=== PATIENT | male | born 1990 | race Caucasian/White ===

== ENCOUNTER 2024-08-05 08:10 | Outpatient (CLI) | payer OTHER, SELFPAY ==
--- OUTSIDE RECORDS SUMMARY | 2024-08-08 18:56 | XMS_ITS | Clinical Summary ---
Author Organization [facility] Address [address] [place] [id number] Care Team Providers Care Coffee Sampler Name Role Phone No Ref-Primary, Physician Primary Care Provider Allergies No known active allergies Medications No known medications Encounters Date Type Department Care Team Description 05/11/2024 12:48 PM CDT - 05/11/2024 1:52 PM CDT Emergency [facility] Emergency Dept [address] [place] [phone] Denise Olivas, PAErikaC Dog bite of right hand, initial encounter Discharge Disposition: Home or Self Care 05/11/2024 Travel from Last 3 Months Immunizations Name Administration Dates Next Due TDAP (Adacel,Boostrix) 05/11/2024 Social History Tobacco Use Types Packs/Day Years Used Date Smoking Tobacco: Never Assessed Adolescent Education Answer Date Record ed Getting School Help Needed Not on file 05/11 Sex and Gender Information Value Date Recorded Sex Assigned at Not on file Gender Identity Not on file Sexual Orientation Not on file Last Filed Vital Signs Vital Sign Reading Time Taken Comments Blood Pressure 161/106 05/11/2024 12:51 PM CDT Pulse 75 05/11/2024 12:51 PM CDT Temperature 36.7 ??C (98 ??F) 05/11/2024 12:51 PM CDT Respiratory Rate 19 05/11/2024 12:51 PM CDT Oxygen Saturation 97% 05/11/2024 12:51 PM CDT Inhaled Oxygen Concentration - - Weight 106.6 kg (235 lb) 05/11/2024 12:51 PM CDT Height 175.3 cm (5' 9) 05/11/2024 12:51 PM CDT Body Mass Index 34.7 05/11/2024 12:51 PM CDT Plan of Treatment Health Maintenance Due Date Last Done Comments ADVANCE CARE PLANNING 1992 ANNUAL REVIEW OF HM ORDERS 1992 YEARLY PREVENTIVE VISIT 1992 HIV SCREENING 02/16/2007 HEPATITIS C SCREENING 02/16/2010 HEPATITIS B IMMUNIZATION (1 of 3 - 19+ 3-dose series) 02/16/2011 PHQ-2 (once per calendar year) 2023 COVID-19 Vaccine (1 - 2023-2 5 season) 2024 INFLUENZA VACCINE (#1) 2024 DTAP/TDAP/TD IMMUNIZATION (2 - Td or Tdap) 05/11/2034 05/11/2024 HPV IMMUNIZATION Aged Out No longer e ligible based on patient's age to complete this topic MENINGITIS IMMUNIZATION Aged Out No l onger eligible based on patient's age to complete this topic Pneumococcal Vaccine: Pediat rics (0 to 5 Years) and At-Risk Patients (6 to 64 Years) Aged Out No longer eligi ble based on patient's age to complete this topic RSV MONOCLONAL ANTIBODY Aged Out No l onger eligible based on patient's age to complete this topic Care Teams Coffee Sampler Relationship Specialty Start Date End Date No Ref-Primary, Physician PCP - General 05/11/24
--- OUTSIDE RECORDS SUMMARY | 2024-08-08 18:56 | XMS_ITS | Referral Summary ---
Author Organization [facility] Address [address] [place] [address] Care Team Providers Care Bench Machine Operator Name Role Phone No Ref-Primary, Physician Primary Care Provider Encounters Date Type Department Care Team Description 05/11/2024 Travel 05/11/2024 12:48 PM CDT - 05/11/2024 1:52 PM CDT Emergency [facility] Emergency Dept [address] [place] [phone] Denise Olivas, KAILASHC Dog bite of right hand, initial encounter Discharge Disposition: Home or Self Care from Last 3 Months Allergies No known active allergies Medications No known medications Immunizations Name Administration Dates Next Due TDAP [...] 05/11/2024 12:51 PM CDT Plan of Treatment Not on file Care Teams Bench Machine Operator Relationship Specialty Start Date End Date No Ref-Primary, Physician PCP - General 05/11/24
--- OUTSIDE RECORDS SUMMARY | 2024-08-08 18:56 | XMS_ITS | Encounter Summary ---
Author Organization [facility] Address [address] [place] [id number] Care Team Providers Care Tray Drier Operator Name Role Phone No Ref-Primary, Physician Primary Care Provider Reason for Visit * Reason Comments Dog Bite Encounter Details Date Type Department Care Team (Late st Contact Info) Description 05/11/2024 12:48 PM CDT - 05/11/2024 1:52 PM CDT Emergency [facility] Emergency Dept [address] [place] [address] Denise Olivas, PA-C [facility] [address] [place] [id number] Dog bite of right hand, initial encounter Discharge Disposition: Home or Self Care Social History Tobacco Use Types Packs/Day Years Used Date Smoking Tobacco: Never Assessed Adolescent Education Answer Date Record ed Getting School Help Needed Not on file 05/11 Sex and Gender Information Value Date Recorded Sex Assigned at Not on file Gender Identity Not on file Sexual Orientation Not on file documented as of this encounter Last Filed Vital Signs Vital Sign Reading [...] Mass Index 34.7 05/11/2024 12:51 PM CDT documented in this encounter Discharge Instructions * Discharge Instructions* Denise Olivas PA-C - 05/11/2024 1:05 PM CDT Continue to clean wound daily, washing with soap and water daily and apply new bandage with bacitracin or Neosporin ointment. Continue antibiotics as prescribed for the next 5 days. If you find out that dog was not up-to-date on vaccines or wish to pursue rabies vaccination series, please return toER. * Attachments The following attachments cannot be sent through Care Everywhere. 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 Unknown rabies vaccine. * Denise Olivas PA-C - 05/11/2024 12:35 PM CDT Emergency Department Note History of Present Illness Chief Complaint Dog Bite HPI Truong Lucas is a 34 year old male who presents with dog bite. Patient reports that he was near her house that had numerous dogs and fenced yard. Fence was knocked over accidentally by one of the dogs and one of the small terriers came and bit patient on the right hand. Uncertain of rabies vaccination status as he called the family's glass cleaning machine tender who denies any history for the pets listed. Family is adamant that pets are up-to-date on vaccines however. Discussed rabies vaccination with patient and he declined these today. Independent Historian None Review of External Notes Reviewed [facility] - last tdap 2011 Past Medical History Medical History and Problem List No past medical history on file. Medications amoxicillin-clavulanate (AUGMENTIN) 875-125 MG tablet Surgical History No past surgical history on file. Physical Exam Patient Vitals for the past 24 hrs: BP Temp Temp src Pulse Resp SpO2 Height Weight 05/11/24 1251 (!) 161/106 98 ??F (36.7 ??C) Oral 75 19 97 % 1.753 m (5' 9) 106.6 kg (235 lb) 05/11/24 1247 (!) 159/119 99.1 ??F (37.3 ??C) Oral 71 18 97 % -- -- 05/11/24 1246 -- -- -- -- 18 -- -- -- Physical Exam General: Alert and cooperative with exam. Patient in no apparent distress. Normal mentation. Head: Scalp is NC/AT Eyes: EOM intact ENT: The external nose and ears are normal. Neck: Normal range of motion without rigidity. CV: Warm and well perfused Resp: Breathing comfortably on room air MSK: Full range of motion of all digits of right hand without difficulty or pain. No evidence of tendon injury. Skin: Small superficial abrasion and small puncture wound noted to dorsal aspect of MCP joint of right second digit. Bleeding controlled. Neuro: Oriented x 3. No gross motor deficits. Diagnostics None ED Course Medications Administered Medications amoxicillin-clavulanate (AUGMENTIN) 875-125 MG per tablet 1 tablet (has no administration in time range) Tdap (mjtuizn-qylsgxuptz-ftprh pertussis) (ADACEL) injection 0.5 mL (0.5 mLs Intramuscular $Given 05/11/24 1310) Procedures Procedures Discussion of Management None ED Course Optional/Additional Documentation None Medical Decision Making / Diagnosis [facility] Diagnoses: None MIPS None MDM Truong Lucas is a 34 year old male who presents with dog bite to right index finger over dorsal aspect at MCP joint. See HPI for further details. Patient is uncertain if dog that bit him is up-to-date on vaccines but is actively working to find this out. Discussed initiation of rabies vaccinationseries here and as patient has low suspicion for rabies infection and is still continuing to work to find out if vaccination is up-to-date, he wishes to decline series today and states he will returnto ER if he finds out that dog was not up-to-date on vaccines or if he wishes to pursue rabies vaccination in the next few days. Superficial abrasion along with small puncture wound noted to the dorsal aspect of right MCP joint. Full range of motion of the digits of right hand without difficulty orpain. Wound was thoroughly cleansed and dressed. Tetanus was not up-to-date, this was updated today. Started patient on Augmentin, initial dose provided here with Rx sent to pharmacy. Discussed woundcares and reasons to follow-up with primary. If symptoms of laceration and bite worsen he develops s igns or symptoms of infection or worsening pain, return to ER. Disposition The patient was discharged. Diagnosis ICD-10-CM 1. Dog bite of right hand, initial encounter S61.451A W54.0XXA Discharge Medications New Prescriptions AMOXICILLIN-CLAVULANATE (AUGMENTIN) 875-125 MG TABLET Take 1 tablet by mouth 2 times daily for 5 days PEEWEE Funez Lauren R, PA-C 05/11/24 1320 documented in this encounter Plan of Treatment Not on file documented as of this encounter Visit Diagnoses Diagnosis Dog bite of right hand, initial encounter documented in this encounter Administered Medications Inactive Administered Medications - up to 3 most recent administrations Medication Order MAR Action Action Date Dose Rate Site amoxicillin-clavulanate (AUGMENTIN) 875-125 MG per tablet 1 tablet STAT, 1 tablet, Oral, ONCE, On Fri05/11/24 at 1300, For 1 dose, Indications: dog bite $Given 05/11/2024 1:34 PM CDT 1 tablet documented in this encounter Active and Recently Administered Medications Times are shown in CDT. Scheduled Medication Order 05/09/2024 05/10/2024 05/11/2024 amoxicillin-clavulanate (AUGMENTIN) 875-125 MG per tablet 1 tablet (COMPLETED) STAT, 1 tablet, Oral, ONCE, On Fri05/11/24 at 1300, For 1 dose, Indications: dog bite 1334 ($Given - Provi kimmie: Sadie Rodriguez RN) documented in this encounter Care Teams Tray Drier Operator Relationship Specialty Start Date End Date No Ref-Primary, Physician PCP - General 05/11/24 documented as of this encounter
--- OUTSIDE RECORDS SUMMARY | 2024-08-08 18:56 | XMS_ITS | Encounter Summary ---
Author Organization [facility] Address [address] [place] [id number] Care Team Providers Care Naval Surface Fire Support Planner Name Role Phone No Ref-Primary, Physician Primary Care Provider Encounter Details Date Type Department Care Team (Latest Contact Info) Description 05/11/2024 Travel Social History Tobacco Use Types Packs/Day Years Used Date Smoking Tobacco: Never Assessed Adolescent Education Answer Date Record ed Getting School Help Needed Not on file 05/11 Sex and Gender Information Value Date Recorded Sex Assigned at Not on file Gender Identity Not on file Sexual Orientation Not on file documented as of this encounter Plan of Treatment Not on file documented as of this encounter Visit Diagnoses Not on filedocumented in this encounter Care Teams Naval Surface Fire Support Planner Relationship Specialty Start Date End Date No Ref-Primary, Physician PCP - General 05/11/24 documented as of this encounter
--- OUTSIDE RECORDS SUMMARY | 2024-08-08 18:56 | XMS_ITS | Clinical Summary ---
Author Organization [facility] Address [address], [place] [address] Care Team Providers Care Tour Leader Name Role Phone Unavailable Primary Care Provider Unavailabl e Source Comments You are receiving this document as you are listed as the primary care provider,follow-up provider, or the patient has been referred to you for consultation.This is in compliance with the Medicare andMedicaid EHR Incentive Program,which states Providers who transition their patient to another setting of careor provider of care or refers their patient to another provider of care shouldprovide summary care record for each transition of care or referral. [facility] Allergies No known active allergies Social History Tobacco Use Types Packs/Day Years Used Date Smoking Tobacco: Never Assessed Sex and Gender Information Value Date Recorded Sex Assigned at Not on file Gender Identity Not on file Sexual Orientation Not on file Last Filed Vital Signs Vital Sign Reading Time Taken Comments Blood Pressure - - Pulse - - Temperature 37.1 ??C (98.7 ??F) 12/11/2023 1:50 PM CS T Respiratory Rate - - Oxygen Saturation - - Inhaled Oxygen Concentration - - Weight 101.2 kg (223 lb) 12/11/2023 1:50 PM PREMIUM REPRESENTATIVE Height 175.3 cm (5' 9) 12/11/2023 1:50 PM PREMIUM REPRESENTATIVE Body Mass Index 32.93 12/11/2023 1:50 PM PREMIUM REPRESENTATIVE Plan of Treatment Health Maintenance Due Date Last Done Comments Hep C Screening (Preventive Services) 1992 HIV Screening (Preventive Services) 2008 Adult Preventive Visit 02/16/2010 HepB (1) 02/16/2011 DTaP/Tdap/Td (7 - Tdap) 01/14/2022 01/15/20, 06/11/2004, 02/28/1997, Additional history exists COVID-19 Vaccine ( season) 2024 11/15/2021, 12/20/2020, 11/21/2020 Influenza (#1) 2024 09/23/2022, 04/2022, 09/13/2020, Additional history exists Zoster/Shingles (1 of 2) 02/16/2042 Hib Completed 05/18/1993, 01/1992, 1992, Additional history exists IPV (Polio) Completed 02/28/1997, 02/1993, 1992, Additional history exists MCV4 Completed 09/14/2010 HPV Vaccine Aged Out No longer eligi ble based on patient's age to complete this topic HepA Aged Out No longer eligi ble based on patient's age to complete this topic Pneumococcal Aged Out No longer eligi ble based on patient's age to complete this topic Truong Lucas Personal/Family Self [address] [place] [id number] Truong Lucas Workers Comp Self [address] [place] [id number] Truong Lucas Workers Comp Self [address] [place] [id number]
== END 2024-08-05 08:11 | disposition home or self-care (01) ==
LOC: NFLDREF 08-08 18:54
PROVIDERS: PCP Family Medicine; Referring Provider Family Medicine; Visit Provider Family Medicine
DX: R03.0 Elevated blood-pressure reading, without diagnosis of hypertension (principal); Z13.220 Encounter for screening for lipoid disorders
CPT/HCPCS: 80053; 80061